=== PATIENT | male | born 1985 | race Caucasian/White ===

== ENCOUNTER 2017-05-13 18:55 | Emergency (ER) | payer OTHER ==
[~2017-05-13] VITALS: Ht 185.4 cm; Wt 69.3 kg
[~2017-05-13 18:55] MED LIST: MOTRIN800 MG PO; PEN-VEE K,VEET500 MG PO; ULTRAM50 MG PO
[2017-05-13 19:37] LABS: HEMATOCRIT 43.8 % (38.0-50.0); MCH 31.4 PG (29.0-34.0); MCHC 35.4 G/DL (30.0-36.0); MCV 88.7 FL (86-99); MEAN PLAT.VOLUME 8.9 uM^3 (9.0-12.4); PLATELET COUNT 311 K/uL (156-360); RBC DIS.WIDTH-CV 12.1 % (11.8-14.6); RBC DIS.WIDTH-SD 39.1 % (39-53); RED BLOOD COUNT 4.94 M/uL (4.00-5.50); WHITE BLOOD COUNT 10.5 K/uL (4.1-10.2)
[2017-05-13 19:48] LABS: CHLORIDE 108 mEq/L (99-109); POTASSIUM 3.8 mEq/L (3.7-5.4); SODIUM 142 mEq/L (136-147)
[2017-05-13 19:50] LABS: GLUCOSE 110 mg/dL (70-99)
[2017-05-13 19:52] LABS: ANION GAP 9 MEQ/L (2-14)
[2017-05-13 19:54] LABS: GFR ESTIMATE (CALCULATED) > 59 mL/min/
[2017-05-13 19:55] LABS: UREA NITROGEN (BUN) 11 mg/dL (9-23)
[2017-05-13 22:41] VITALS: BP 115/72
== END 2017-05-13 22:42 | disposition home or self-care (01) ==
LOC: EME 18:55
DX: H53.9 Unspecified visual disturbance (principal); B34.9 Viral infection, unspecified
CPT/HCPCS: 71020; 80048; 81003; 85027; 93005; 99281; 99284

== ENCOUNTER 2017-06-03 14:50 | Emergency (ER) | payer OTHER ==
[~2017-06-03] VITALS: Ht 185.4 cm; Wt 72.6 kg
[2017-06-03 17:36] VITALS: BP 141/84
== END 2017-06-03 17:37 | disposition home or self-care (01) ==
LOC: EME 14:50
DX: R42 Dizziness and giddiness (principal); F17.200 Nicotine dependence, unspecified, uncomplicated; Z86.14 Personal history of Methicillin resistant Staphylococcus aureus infection
CPT/HCPCS: 99281; 99283

== ENCOUNTER 2017-07-25 02:52 | Emergency (ER) | payer OTHER ==
[~2017-07-25] VITALS: Ht 182.9 cm; Wt 69.7 kg
[2017-07-25 04:46] LABS: HEMATOCRIT 44.2 % (38.0-50.0); MCH 32.3 PG (29.0-34.0); MCHC 36.2 G/DL (30.0-36.0); MCV 89.1 FL (86-99); PLATELET COUNT 338 K/uL (156-360); RBC DIS.WIDTH-CV 12.1 % (11.8-14.6); RBC DIS.WIDTH-SD 39.7 % (39-53); RED BLOOD COUNT 4.96 M/uL (4.00-5.50); WHITE BLOOD COUNT 10.4 K/uL (4.1-10.2)
[2017-07-25 04:59] LABS: ALBUMIN 4.9 g/dL (3.2-4.8); CHLORIDE 101 mEq/L (99-109); SODIUM 139 mEq/L (136-147)
[2017-07-25 05:01] LABS: GLUCOSE 98 mg/dL (70-99); TOTAL PROTEIN 7.9 g/dL (6.4-8.3)
[2017-07-25 05:03] LABS: TOTAL BILIRUBIN 0.5 mg/dL (0.0-1.0)
[2017-07-25 05:04] LABS: SERUM ETHYL ALCOHOL < 10 mg/dL
[2017-07-25 05:05] LABS: ALKALINE PHOSPHATASE 51 IU/L (3-129); CREATININE 0.8 mg/dL (0.6-1.3); GFR ESTIMATE (CALCULATED) > 59 mL/min/ (58.99-99999)
[2017-07-25 05:06] LABS: AST (GOT) 23 IU/L (2-34); UREA NITROGEN (BUN) 12 mg/dL (9-23)
[2017-07-25 05:08] LABS: ALT (GPT) 17 IU/L (3-49)
[2017-07-25] MEDS ORDERED: ATIVAN1 MG PO (06:25)
[2017-07-25 06:38] VITALS: BP 108/63
[2017-07-25 08:03] LABS: THYROTROPIN (TSH) 1.3 MIU/L (0.4-5.5)
== END 2017-07-25 06:46 | disposition home or self-care (01) ==
LOC: EME 02:52
PROVIDERS: Emergency Medicine
DX: E05.90 Thyrotoxicosis, unspecified without thyrotoxic crisis or storm (principal); Z86.14 Personal history of Methicillin resistant Staphylococcus aureus infection; Z87.891 Personal history of nicotine dependence
CPT/HCPCS: 70491; 80053; 84443; 85027; 99281; 99284; G0480

== ENCOUNTER 2017-09-03 17:11 | Emergency (ER) | payer OTHER ==
[~2017-09-03] VITALS: Ht 182.9 cm; Wt 69.9 kg
[~2017-09-03 17:11] MED LIST changes: +ATIVAN1 MG PO
[2017-09-03 17:20] VITALS: BP 140/91
[2017-09-03 17:36] LABS: HEMATOCRIT 40.9 % (38.0-50.0); MCH 32.2 PG (29.0-34.0); MCHC 36.7 G/DL (30.0-36.0); MCV 87.8 FL (86-99); PLATELET COUNT 344 K/uL (156-360); RBC DIS.WIDTH-CV 11.6 % (11.8-14.6); RED BLOOD COUNT 4.66 M/uL (4.00-5.50); WHITE BLOOD COUNT 11.6 K/uL (4.1-10.2)
[2017-09-03 17:45] LABS: CHLORIDE 102 mEq/L (99-109); POTASSIUM 4.1 mEq/L (3.7-5.4); SODIUM 142 mEq/L (136-147)
[2017-09-03 17:47] LABS: GLUCOSE 95 mg/dL (70-99)
[2017-09-03 17:51] LABS: CREATININE 0.8 mg/dL (0.6-1.3); GFR ESTIMATE (CALCULATED) > 59 mL/min/ (58.99-99999); UREA NITROGEN (BUN) 9 mg/dL (9-23)
[2017-09-03 17:57] LABS: TROP-I INTERPRETATION NEGATIVE; TROPONIN-I < 0.01 ng/mL (0.0-0.30)
== END 2017-09-03 19:25 | disposition left against medical advice (07) ==
LOC: EME 17:11
DX: R53.81 Other malaise (principal); R53.83 Other fatigue; F41.9 Anxiety disorder, unspecified; Z87.891 Personal history of nicotine dependence; Z86.14 Personal history of Methicillin resistant Staphylococcus aureus infection
CPT/HCPCS: 71046; 80048; 84484; 85027; 93005; 99281; 99284